=== PATIENT | male | born 1960 | race Caucasian/White ===

== ENCOUNTER → 2018-08-16 | Outpatient (CLI) | payer OTHER ==
[~2018-08-16] MED LIST: CLARITIN REDITA10 MG PO; CLONAZEPAM0.5 MG PO; LEXAPRO10 MG PO; MULTIPLE VITAMI1 CAP PO; SIMVASTATIN20 MG PO
== END ==
LOC: BHSO 11:04
DX: F33.41 Major depressive disorder, recurrent, in partial remission (principal)

== ENCOUNTER → 2018-09-20 | Outpatient (CLI) | payer OTHER | LOC: BHSO 09:24 | DX: F33.41 Major depressive disorder, recurrent, in partial remission (principal) | CPT/HCPCS: G0463 ==

== ENCOUNTER → 2018-11-21 | Outpatient (CLI) | payer OTHER | LOC: BHSO 10:11 | DX: F43.10 Post-traumatic stress disorder, unspecified (principal) | CPT/HCPCS: G0463 ==

== ENCOUNTER 2019-01-22 14:25 | Emergency (ER) | payer OTHER ==
[~2019-01-22] VITALS: Ht 177.8 cm; Wt 88.2 kg
[2019-01-22 14:29] VITALS: TEMP 97.7
[2019-01-22] MEDS ORDERED: ZOCOR 40MG40 MG PO (14:59)
[2019-01-22] MEDS ORDERED: ATARAX 25MG25 MG/TAB PO (15:00)
[2019-01-22] MEDS ORDERED: ZYRTEC 10MG10 MG PO (15:00)
[2019-01-22] MEDS ORDERED: PRILOSEC10 MG PO (15:00)
[2019-01-22] MEDS ORDERED: WELLBUTRIN 75MG75 MG PO (15:01)
[2019-01-22] MEDS ORDERED: PRISTIQ 50 MG T50 MG PO (15:01)
[2019-01-22 15:26] LABS: BASO # 0.1 (0.0-0.2); BASO % 0.7 % (0.0-2.0); EOS # 0.1 (0.0-0.7); EOS % 1.6 % (0-4.0); GRAN # 5.2 (1.4-6.5); GRAN % 58.2 % (42.2-75.2); HEMATOCRIT 46.3 % (42.0-52.0); HEMOGLOBIN 15.5 g/dl (13.5-18.0); LYMPH # 2.5 (1.2-3.4); LYMPH % 28.7 % (20.0-51.0); MEAN CELL VOLUME 87 fl (80.0-100.0); MEAN CORPUSCULAR HEMOGLOBIN 29 pg (27.0-31.0); MEAN CORPUSCULAR HGB CONC 34 g/dl (33.0-37.0); MEAN PLATELET VOLUME 9.5 fl (7.4-10.4); MONO # 0.9 (0.1-0.6); MONO % 10.5 % (1.7-9.3); PLATELET COUNT 215 K/mm3 (130-400); RED BLOOD COUNT 5.33 M/mm3 (4.20-5.60); REDCELL DISTRIBUTION WIDTH-CV 13.2 % (11.5-14.5)
[2019-01-22 15:38] LABS: ALANINE AMINOTRANSFERASE 27 U/L (21-72); ALBUMIN 4.4 gm/dL (3.5-5.0); ALKALINE PHOSPHATASE 76 U/L (50-136); ANION GAP 10 mmol/L (7-16); AST,SGOT 39 U/L (15-37); BILIRUBIN,TOTAL 0.5 mg/dL (0.0-1.0); BLOOD UREA NITROGEN 18 mg/dL (9-20); CALCIUM 10.1 mg/dL (8.4-10.2); CARBON DIOXIDE 26 mmol/L (22-30); CHLORIDE 105 mmol/L (98-107); CREATININE, serum 1.16 (0.66-1.25); GLUCOSE 99 mg/dL (74-106); POTASSIUM 3.9 mmol/L (3.4-5.0); SODIUM 141 mmol/L (137-145); TOTAL PROTEIN 7.7 gm/dL (6.4-8.2)
[2019-01-22 15:38] LABS: COLLECTION METHOD CLEAN CATCH
[2019-01-22 15:39] LABS: ACETAMINOPHEN < 10 ug/mL (10-30); ALCOHOL(ethanol),MEDICAL < 10 mg/dL; SALICYLATE < 1.0 mg/dL
[2019-01-22 15:45] LABS: PH 7 (5-8); SQUAMOUS EPITHELIAL None Seen /hpf; URINE APPEARANCE Clear; URINE BACTERIA None Seen /hpf; URINE BILIRUBIN Negative (NEGATIVE); URINE BLOOD Negative (NEGATIVE); URINE COLOR Straw; URINE GLUCOSE Negative (NEGATIVE); URINE KETONE Negative (NEGATIVE); URINE LEUKOCYTE ESTERASE Negative (NEGATIVE); URINE NITRATE Negative (NEGATIVE); URINE PROTEIN(semi-quant) Negative (NEGATIVE); URINE RBC None Seen /hpf; URINE UROBILINOGEN Negative (NEGATIVE)
[2019-01-22 15:58] LABS: TRICYCLIC ANTIDEPRESS URINE NEGATIVE
[2019-01-22 17:34] VITALS: BP 125/86; PULSE 67
== END 2019-01-22 17:35 | disposition home or self-care (01) ==
LOC: COL.ER 14:25
PROVIDERS: Family Medicine
DX: S60.221A Contusion of right hand, initial encounter (principal); F32.9 Major depressive disorder, single episode, unspecified; W54.1XXA Struck by dog, initial encounter

== ENCOUNTER → 2019-01-23 | Outpatient (CLI) | payer OTHER ==
[~2019-01-23] MED LIST changes: +ATARAX 25MG25 MG/TAB PO; +PRILOSEC10 MG PO; +PRISTIQ 50 MG T50 MG PO; +WELLBUTRIN 75MG75 MG PO; +ZOCOR 40MG40 MG PO; +ZYRTEC 10MG10 MG PO
== END ==
LOC: BHSO 10:14
DX: F41.1 Generalized anxiety disorder (principal)
CPT/HCPCS: G0463

== ENCOUNTER → 2019-02-25 | Outpatient (CLI) | payer OTHER | LOC: BHSO 15:23 | DX: F33.42 Major depressive disorder, recurrent, in full remission (principal) | CPT/HCPCS: G0463 ==

== ENCOUNTER → 2019-10-14 | Outpatient (CLI) | payer OTHER | LOC: BHSO 10:25 | DX: F41.1 Generalized anxiety disorder (principal) | CPT/HCPCS: G0463 ==

== ENCOUNTER → 2020-03-04 | Outpatient (CLI) | payer OTHER | LOC: BHSO 08:37 | DX: F33.41 Major depressive disorder, recurrent, in partial remission (principal) | CPT/HCPCS: G0463 ==

== ENCOUNTER → 2020-06-02 | Outpatient (CLI) | payer OTHER | LOC: BHSO 10:41 | DX: F41.1 Generalized anxiety disorder (principal) | CPT/HCPCS: G0463 ==